=== PATIENT | female | born 1955 | race Caucasian/White ===

== ENCOUNTER 2020-03-05 15:16 | Emergency (ER) | payer OTHER, MEDICAID, SELFPAY ==
[2020-03-05 15:33] VITALS: BP 150/101; PULSE 87; RESP 16; TEMP 36.7; O2SAT 97; BMI 29.0
--- NOTE | 2020-03-05 15:41 | DI.US.S_ITS ---
PROCEDURE: US ABDOMEN LIMITED INDICATIONS: RUQ PAIN TECHNIQUE: Real-time focused scanning was performed of the abdomen, with image documentation. COMPARISON: None. FINDINGS: There are gallstones and gallbladder sludge. There is a gallbladder septation. No gallbladder wall thickening, pericholecystic fluid or sonographic Mckeon's sign. Liver is normal in size and demonstrates increased echotexture. The common bile duct is normal in contour measuring 5 mm. Visualized pancreas is normal. IMPRESSION: 1. Cholelithiasis. There are no ultrasound findings to suggest acute cholecystitis. 2. Diffusely increased hepatic echotexture. This finding is most likely secondary to hepatic fatty infiltration although other hepatocellular disease may have a similar appearance. Recommend clinical correlation. 3. Normal ultrasound appearance of pancreas. 4. Normal caliber of common bile duct. Dictated by: Ginny Arroyo M.D. on 03/05/2020 at 16:40 Approved by: Ginny Arroyo M.D. on 03/05/2020 at 16:43
--- NOTE | 2020-03-05 15:44 | ED.ABDPAIN ---
HPI - Abdominal Pain <MATTIE Casper - Last Filed: 03/05/20 19:10> General Chief Complaint: Abdominal Pain Stated Complaint: stomach issues, pain with eating Time Seen by Provider: 03/05/20 15:28 History of Present Illness HPI narrative: 64yo female presents to the ED for right upper quadrant/epigastric pain for the past 8 months. Patient states she notices that is worse in the morning and after she eats a large meal. She states she has had gallbladder problems in the past has not had a cholecystectomy. Patient has intermittent nausea but denies any nausea at this time. She does states that she feels like her abdomen is bloated. Patient reports she has not seen a doctor in years, denies taking any medications. Patient denies any other symptoms such as fevers, chills, diarrhea, blood in stools, chest pain, shortness of breath, dizziness, or any other concerns. Patient states she drinks approximately two drinks a day of wine and or a mixed drink. Patient denies any history of blood clots or taking any blood thinners. Review of Systems <MATTIE Casper - Last Filed: 03/05/20 19:10> Review of Systems Narrative: REVIEW OF SYSTEMS: GENERAL: Denies fever, chills, malaise, or wt. loss. HENT: No head trauma. CARDIOVASCULAR: No chest pain, palpitations, or orthopnea. RESPIRATORY: No shortness of breath or cough. GASTROINTESTINAL: Complains of RUQ abdominal pain with intermittent nausea, see HPI GENITOURINARY: No flank pain, urinary incontinence, hesitancy, frequency, or dysuria. MUSCULOSKELETAL: No pain, weakness, or trauma. INTEGUMENTARY: No rash, lesions, or pruritus. NEURO: No numbness, tingling. PSYCH: No behavior or mood changes. Patient History <MATTIE Casper - Last Filed: 03/05/20 19:10> Medical History No significant family history (Acute) Social History Smoking Status: Never smoker Smoking Status: Never smoker alcohol intake frequency: 0-2 drinks per day Alcohol type: wine Substance Use Type: does not use Exam <MATTIE Casper - Last Filed: 03/05/20 19:10> Initial Vital Signs Initial Vital Signs: Vital Signs Temperature 98.0 F 03/05/20 15:33 Pulse Rate 87 03/05/20 15:33 Respiratory Rate 16 03/05/20 15:33 Blood Pressure 150/101 H 03/05/20 15:33 Pulse Oximetry 97 03/05/20 15:33 PHYSICAL EXAMINATION: GENERAL: Well groomed, alert, and cooperative. Answers questions promptly and appropriately. Vital signs noted. HENT: Normocephalic, atraumatic. Hearing intact. Oral mucosa is pink and moist. EYES: Conjunctiva pink, sclera white, no periorbital swelling. CARDIOVASCULAR: S1 and S2 sounds normal. Regular rate and rhythm, no murmurs, clicks, or bruits. No pedal edema. RESPIRATORY: Normal respiratory rate, trachea midline, airway patent. No stridor, nasal flaring or accessory muscle use. Lungs are clear in all reese without wheeze, rhonchi, or crackles. GASTROINTESTINAL: Bowel sounds normoactive. Abdomen slightly distended, right upper quadrant tenderness. No organomegaly, no palpable masses. MUSCULOSKELETAL: Normal gait and coordination. Equal tone and mass bilaterally. EXTREMITIES: CMS intact, no pedal edema. SKIN: Warm, dry, soft, appropriate color for ethnicity. No lesions, rashes, or wounds to visualized areas. NEURO: Alert and Oriented X 3. Good coordination. No ataxia, or sensory deficits, or cognitive issues. PSYCH: Appropriate affect and mood. <Horacio Casiano DO - Last Filed: 03/06/20 07:07> Initial Vital Signs Initial Vital Signs: Vital Signs Temperature 98.0 F 03/05/20 15:33 Pulse Rate 87 03/05/20 15:33 Respiratory Rate 16 03/05/20 15:33 Blood Pressure 150/101 H 03/05/20 15:33 Pulse Oximetry 97 03/05/20 15:33 Course <MATTIE Casper - Last Filed: 03/05/20 19:10> Course Course Narrative: Patient was re-evaluated, continues to deny pain. We discussed urinary analysis findings, patient denies any dysuria, flank pain, fevers, or chills. Discussed option to wait for culture, patient was agreeable and did not want to start antibiotics at this time. Orders Ordered: Discontinued Medications Sodium Chloride (Normal Saline 0.9%) 1,000 mls @ 1,000 mls/hr IV BOLUS ONE Stop: 03/05/20 16:40 Last Infusion: 03/05/20 17:23 Dose: 0 mls/hr Documented by: Admin: 03/05/20 16:04 Dose: 1,000 mls/hr Documented by: GE Vital Signs Vital signs: Vital Signs - 8 hr 03/05/20 15:33 03/05/20 16:30 03/05/20 16:35 Temperature 98.0 F Pulse Rate 87 82 83 Respiratory Rate 16 16 14 Blood Pressure 150/101 H Blood Pressure [Left Arm] 146/75 H Blood Pressure [Right Arm] 146/75 H Pulse Oximetry 97 95 96 <Horacio Casiano DO - Last Filed: 03/06/20 07:07> Orders Ordered: Discontinued Medications Sodium Chloride (Normal Saline 0.9%) 1,000 mls @ 1,000 mls/hr IV BOLUS ONE Stop: 03/05/20 16:40 Last Infusion: 03/05/20 17:23 Dose: 0 mls/hr Documented by: Admin: 03/05/20 16:04 Dose: 1,000 mls/hr Documented by: GE Vital Signs Vital signs: Vital Signs - 8 hr 03/05/20 15:33 03/05/20 16:30 03/05/20 16:35 Temperature 98.0 F Pulse Rate 87 82 83 Respiratory Rate 16 16 14 Blood Pressure 150/101 H Blood Pressure [Left Arm] 146/75 H Blood Pressure [Right Arm] 146/75 H Pulse Oximetry 97 95 96 MDM - Abdominal Pain <MATTIE Casper - Last Filed: 03/05/20 19:10> Medical Records Attestation: I reviewed the patient's medical records. Lab Data Attestation: I reviewed the patient's lab results. Result diagrams: 03/05/20 15:47 03/05/20 15:47 Labs: Lab Results 03/05/20 03/05/20 03/05/20 Range/Units 15:47 15:47 16:30 WBC 8.4 (4.5-11.0) X10^3/uL RBC 3.63 L (4.0-5.2) X10^6/uL Hgb 14.6 (12.0-16.0) g/dL Hct 41.0 (36-46) % MCV 112.9 H (80-100) fL MCH 40.2 H (26-34) PG MCHC 35.6 (30-36) % RDW 14.3 (11.6-14.8) % Plt Count 183 (150-400) X10^3/uL Neut % (Auto) 74.6 (50-75) % Lymph % (Auto) 17.0 L (25-40) % [place] % (Auto) 6.0 (3-14) % Eos % (Auto) 1.7 L (2-4) % Baso % (Auto) 0.7 (0-2) % Neut # (Auto) 6300 (4416-3182) /uL Lymph # (Auto) 1400 (6115-9103) /uL [place] # (Auto) 500 (0-900) /uL Eos # (Auto) 100 (0-450) /uL Baso # (Auto) 100 (0-100) /uL RBC Morphology Not Reportable Macrocytosis 2+ H Sodium 136 L (137-145) mmol/L Potassium 3.9 (3.4-5.1) mmol/L Chloride 101 (98-107) mmol/L Carbon Dioxide 28 (22-32) mmol/L BUN 8 (7-17) mg/dL Creatinine 0.59 (0.52-1.04) mg/dL Estimated GFR > 60.0 (>60) mL/min BUN/Creatinine Ratio 13.6 (6-22) Glucose 109 (80-110) mg/dL Calcium 9.5 (8.4-10.2) mg/dL Total Bilirubin 0.8 (0.2-1.3) mg/dL AST 240 H (14-36) IU/L ALT 112 H (<35) IU/L Alkaline Phosphatase 125 (38-126) U/L Total Protein 7.7 (6.3-8.2) g/dL Albumin 4.4 (3.5-5.0) g/dL Globulin 3.3 (1.7-4.1) g/dL Albumin/Globulin Ratio 1.3 (1.0-2.8) Lipase 76 (23-300) U/L Urine RBC None seen (0-5/HPF) Urine WBC >100/hpf H (0-5/HPF) Ur Squamous Epith Cells 1-5 /hpf (0-5/HPF) Ur Renal Epithelial Cell 0-1/hpf (0-1/HPF) Amorphous Sediment 1+ Urine Bacteria Many (>30) H (None) Urine Mucus 2+ H (Negative) Ur Culture Indicated? Specimen cultured Point of care testing: Urine Dip Bedside Urine Glucose Negative Bedside Urine Bilirubin + 1 Bedside Urine Ketone +/- 5 Urine Specific [place] 1.015 Bedside Urine Occult Blood - Negative Bedside Urine pH 6.0 Bedside Urine Protein + 30 Bedside Urine Urobilinogen 2+ 4mg Bedside Urine Nitrite + Positive Bedside Urine Leukocytes +++ 500 Esterase Imaging Data US - abdomen: Radiologist's Impression: [address] [address] Ultrasound Report Signed Patient: Sharad Woodson#: [id number] : 5Acct:[id number] Age/Sex: 64 / FDate of Service: 03/05/20 Loc: ED Accession Number: [id number] Procedure: US abdomen limited Ordering Provider: Amanda Machuca PROCEDURE: US ABDOMEN LIMITED INDICATIONS: RUQ PAIN TECHNIQUE: Real-time focused scanning was performed of the abdomen, with image documentation. COMPARISON: None. FINDINGS: There are gallstones and gallbladder sludge. There is a gallbladder septation. No gallbladder wall thickening, pericholecystic fluid or sonographic Mckeon's sign. Liver is normal in size and demonstrates increased echotexture. The common bile duct is normal in contour measuring 5 mm. Visualized pancreas is normal. IMPRESSION: 1. Cholelithiasis. There are no ultrasound findings to suggest acute cholecystitis. 2. Diffusely increased hepatic echotexture. This finding is most likely secondary to hepatic fatty infiltration although other hepatocellular disease may have a similar appearance. Recommend clinical correlation. 3. Normal ultrasound appearance of pancreas. 4. Normal caliber of common bile duct. Dictated by: Ginny Arroyo M.D. on 03/05/2020 at 16:40 Approved by: Ginny Arroyo M.D. on 03/05/2020 at 16:43 MDM Narrative Medical decision making narrative: 64-year-old female presents emergency department complaining of left upper quadrant pain for the past few months. I Suspect patient's pain is most likely related to cholelithiasis due to prolonged duration of pain, history of ?gallbladder problems ?in the past, cholelithiasis seen on ultrasound, worsening pain after a large meal or eating heavy foods, and intermittent nausea. No concern for cholecystitis seen on ultrasound, bilirubin and lipase within normal limits. Exam with some mild tenderness but no severe pain. Less concern for acute infection due to normal white blood cell count and lack of other systemic symptoms such as tachycardia or fever. Patient's liver enzymes were slightly elevated, this may be due to fatty liver seen on ultrasound or alcohol consumption as well. It is possible it may be due to cholelithiasis but there are no signs of cholecystitis or elevated bilirubin to suggest emergent intervention is needed at this time. Patient did have bacteria in urine, discussed this with patient, she continued to denies any urinary tract infection symptoms. However, I explained to patient that urine will be sent for a culture and she will receive a call in 2 days if this is positive. In the meantime, patient was encouraged to drink lots of water. Patient was encouraged to refrain from eating foods high in fat, she was referred to the surgical service for further evaluation and consultation. Return precautions given for new or worsening symptoms. Patient agreed to plan of care verbalized understanding. <Horacio Casiano, DO - Last Filed: 03/06/20 07:07> Lab Data Labs: Lab Results 03/05/20 03/05/20 03/05/20 Range/Units 15:47 15:47 16:30 WBC 8.4 (4.5-11.0) X10^3/uL RBC 3.63 L (4.0-5.2) X10^6/uL Hgb 14.6 (12.0-16.0) g/dL Hct 41.0 (36-46) % MCV 112.9 H (80-100) fL MCH 40.2 H (26-34) PG MCHC 35.6 (30-36) % RDW 14.3 (11.6-14.8) % Plt Count 183 (150-400) X10^3/uL Neut % (Auto) 74.6 (50-75) % Lymph % (Auto) 17.0 L (25-40) % [place] % (Auto) 6.0 (3-14) % Eos % (Auto) 1.7 L (2-4) % Baso % (Auto) 0.7 (0-2) % Neut # (Auto) 6300 (1693-8919) /uL Lymph # (Auto) 1400 (3076-4111) /uL [place] # (Auto) 500 (0-900) /uL Eos # (Auto) 100 (0-450) /uL Baso # (Auto) 100 (0-100) /uL RBC Morphology Not Reportable Macrocytosis 2+ H Sodium 136 L (137-145) mmol/L Potassium 3.9 (3.4-5.1) mmol/L Chloride 101 (98-107) mmol/L Carbon Dioxide 28 (22-32) mmol/L BUN 8 (7-17) mg/dL Creatinine 0.59 (0.52-1.04) mg/dL Estimated GFR > 60.0 (>60) mL/min BUN/Creatinine Ratio 13.6 (6-22) Glucose 109 (80-110) mg/dL Calcium 9.5 (8.4-10.2) mg/dL Total Bilirubin 0.8 (0.2-1.3) mg/dL AST 240 H (14-36) IU/L ALT 112 H (<35) IU/L Alkaline Phosphatase 125 (38-126) U/L Total Protein 7.7 (6.3-8.2) g/dL Albumin 4.4 (3.5-5.0) g/dL Globulin 3.3 (1.7-4.1) g/dL Albumin/Globulin Ratio 1.3 (1.0-2.8) Lipase 76 (23-300) U/L Urine RBC None seen (0-5/HPF) Urine WBC >100/hpf H (0-5/HPF) Ur Squamous Epith Cells 1-5 /hpf (0-5/HPF) Ur Renal Epithelial Cell 0-1/hpf (0-1/HPF) Amorphous Sediment 1+ Urine Bacteria Many (>30) H (None) Urine Mucus 2+ H (Negative) Ur Culture Indicated? Specimen cultured Point of care testing: Urine Dip Bedside Urine Glucose Negative Bedside Urine Bilirubin + 1 Bedside Urine Ketone +/- 5 Urine Specific [place] 1.015 Bedside Urine Occult Blood - Negative Bedside Urine pH 6.0 Bedside Urine Protein + 30 Bedside Urine Urobilinogen 2+ 4mg Bedside Urine Nitrite + Positive Bedside Urine Leukocytes +++ 500 Esterase Discharge Plan Departure Patient Disposition: Home Clinical Impression: Cholelithiasis Qualifiers: Cholelithiasis location: gallbladder Cholecystitis presence: without cholecystitis Biliary obstruction: without biliary obstruction Qualified Code(s): K80.20 - Calculus of gallbladder without cholecystitis without obstruction Discharge Date/Time: 03/05/20 17:34 Instructions: Essential Hypertension, DI for Gallstones Activity Restrictions/Additional Instructions: Thank you for entrusting me with your care today. As discussed, your ultrasound shows stones in your gallbladder, there is no inflammation or blockage and no immediate intervention is needed today. However, I suggest following up with the surgical office listed below to schedule a consultation. [facility]: Your liver enzymes were slightly elevated: AST 240 and ALT 112 this could be due to alcohol consumption, genetic fatty liver, and or gallstones. Your blood sugar today was 109 which is normal for a random test. Your blood pressure of was elevated today, this can be a chronic problem or coincidental. I do recommend following up with your primary care provider for further evaluation of your blood pressure. I recommend a low-fat diet and drink plenty of fluids over the next few weeks to minimize abdominal discomfort. Return emergency department for any new or worsening symptoms such as severe pain, uncontrollable vomiting, chest pain, shortness of breath, any other concerns. Referrals: Kavin Hoang MD [Physician] - <Horacio Casiano DO - Last Filed: 03/06/20 07:07> Cosign ED Attending Cosignature Attestation: Dr Casiano Co-Sign Statement: I was available for consultation during this patient's emergency department visit. This chart is signed by myself for administrative purposes only. I did not have direct contact with this patient during this visit. They were seen independently by the APC.
[2020-03-05 15:57] LABS: Add Manual Diff / Slide Review NO; Basophils Absolute Auto 100 /uL (0-100); Basophils Percent Auto 0.7 % (0-2); Eosinophils Absolute Auto 100 /uL (0-450); Eosinophils Percent Auto 1.7 % (2-4); Hemoglobin 14.6 g/dL (12.0-16.0); Lymphocytes Absolute Auto 1400 /uL (1100-4500); Mean Corpuscular HGB Conc 35.6 % (30-36); Mean Corpuscular Hemoglobin 40.2 PG (26-34); Mean Corpuscular Volume 112.9 fL (80-100); Monocytes Absolute Auto 500 /uL (0-900); Neutrophils Absolute Auto 6300 /uL (1500-7000); Neutrophils Percent Auto 74.6 % (50-75); Platelet Count 183 X10^3/uL (150-400); Red Blood Cell Count 3.63 X10^6/uL (4.0-5.2); Red Cell Distribution Width 14.3 % (11.6-14.8); White Blood Cell Count 8.4 X10^3/uL (4.5-11.0)
[2020-03-05 16:04] LABS: Alanine Aminotransferase 112 IU/L (<35); Albumin 4.4 g/dL (3.5-5.0); Albumin Globulin Ratio 1.3 (1.0-2.8); Alkaline Phosphatase 125 U/L (38-126); Aspartate Aminotransferase 240 IU/L (14-36); BUN Creatinine Ratio 13.6 (6-22); Bilirubin Total 0.8 mg/dL (0.2-1.3); Blood Urea Nitrogen 8 mg/dL (7-17); Calcium 9.5 mg/dL (8.4-10.2); Carbon Dioxide 28 mmol/L (22-32); Chloride 101 mmol/L (98-107); Estimated Glomerular Filt Rate > 60.0 mL/min (>60); Globulin 3.3 g/dL (1.7-4.1); Glucose 109 mg/dL (80-110); HEMOLYSIS < 15 (0-50); Lipase 76 U/L (23-300); Potassium 3.9 mmol/L (3.4-5.1); Sodium 136 mmol/L (137-145); Total Protein 7.7 g/dL (6.3-8.2)
[2020-03-05] MEDS: SODIUM CHLORIDE 0.9% 1,000 ML 1000 ML IV (16:04)
[2020-03-05 16:20] LABS: Macrocytosis 2+
[2020-03-05 16:30] VITALS: BP 146/75; PULSE 82; RESP 16; O2SAT 95
[2020-03-05 16:35] VITALS: BP 146/75; PULSE 83; RESP 14; O2SAT 96
[2020-03-05 16:48] LABS: RBC Urine None Seen (0-5/HPF)
[2020-03-05 16:56] LABS: Amorphous Sediment Urine 1+; Bacteria Urine Many (>30); Culture Indicated Urine Specimen Cultured; Mucus Urine 2+ (Negative); Renal Epithelial Cells Urine 0-1/HPF (0-1/HPF); Squamous Epithelial Cell Urine 1-5 /HPF (0-5/HPF); WBC Urine >100/HPF (0-5/HPF)
== END 2020-03-05 17:34 | disposition home or self-care (01) ==
PROVIDERS: Emergency Provider Nurse Practitioner
DX: K80.20 Calculus of gallbladder without cholecystitis without obstruction (principal); I10 Essential (primary) hypertension
CPT/HCPCS: 36415; 76705; 80053; 81003; 81015; 83690; 85025; 87077; 87086; 87186; 96360; 99284

== ENCOUNTER 2020-04-14 13:04 | Day surgery (SDC) | payer OTHER, MEDICAID, SELFPAY ==
[2020-04-08 15:06] VITALS: BMI 31.3
[2020-04-14] VITALS (8 sets, daily range): BP systolic 133–165; BP diastolic 54–81; PULSE 73–94; RESP 14–18; TEMP 36.3–36.9; O2SAT 93–97; BMI 31.3
--- NOTE | 2020-04-14 | PATH_ITS ---
[facility] Accession Number: [id number] . 01 Material submitted: . gallbladder - GALLBLADDER AND CONTENTS . 02 Diagnosis: Gallbladder and Contents: Chronic cholecystitis, cholesterolosis, and cholelithiasis. A gallstone is present within the gallbladder neck at gross examination. V 04/17/2020 1031 Local . 02 Electronically signed: . Marjorie Walsh MD, Pathologist NPI- [id number] . 01 Gross description: . Specimen A is received in formalin, labeled with patient identification and gallbladder and contents. It consists of an intact gallbladder measuring 7.2 cm in length and 2.8 m in diameter. The staple at the cystic duct margin is removed and the cystic duct margin is inked blue. The cystic duct is 0.3 cm in diameter. The serosa is pink-flor smooth and dull. The hepatic surface is yellow-flor shaggy and cauterized. Opening the specimen reveals bright to yellow-flor and velvety mucosa with a black calculus at the neck measuring 0.9 x 0.9 x 0.8 cm. The wall thickness is up to 0.2 cm. No cystic lymph node candidate is grossly identified. Shoeshiner sections are submitted in two cassettes. . Summary of sections: A1 - cystic duct margin, shave, one piece. A2 - shared services representative sections of gallbladder, three pieces. ([id number]) /V 04/16/2020 1354 Local . 02 Pathologist provided ICD-10: K80.20, K81.1, K80.60 . 02 CPT . 361542 Performed at: [address], [place], [place] [id number] MD Waqas Rodriguez MD Phone: [phone] Performed at: 02 [facility] [id number] [place] [id number] MD Marian Capellan MD Phone: [phone]
[2020-04-14] MEDS: LACTATED RINGERS 1,000 ML 100 ML IV (13:23)
--- NOTE | 2020-04-14 13:39 | PM.PREOP ---
Pre-operative Note COVID-19 COVID-19 status: Negative Interval Note History & Physical reviewed/Exam performed by Physician: Yes Changes to H&P: No
[2020-04-14] MEDS: CEFAZOLIN 2 GM/100 ML FROZ.PIGGY IV (13:55)
[2020-04-14] MEDS: BUPIVACAINE 0.25% (PF) VIAL 30 ML INJ (14:24)
--- NOTE | 2020-04-14 14:27 | SUR.OPER ---
Supine on padded OR bed, head on pillow, safety belt at thigh, left arm padded and tucked at side. Right arm secured on padded arm oard <90 degrees abduction. Legs uncrossed. Padded footboard in place. Tape over blanket to secure lower legs.
--- NOTE | 2020-04-14 15:23 | PM.OP.1 ---
Operative Date/Time/Diagnoses Date of procedure: 04/14/20 Time of procedure: 15:24 Pre-op diagnosis: Biliary colic Post-op diagnosis: same Procedure & Clinicians Procedure: Laparoscopic cholecystectomy Same procedure as scheduled: Yes Indications: 64-year-old female with multiple episodes of biliary colic presents for elective cholecystectomy Surgeon: Kavin Hoang Click Yes if Unassisted: Yes Anesthesia Type: General Operative Notes Findings: Chronic cholecystitis Estimated Blood Loss (mL): 20 Procedure in detail: The patient was placed supine on the table and bilateral lower extremity compression devices were applied. Anesthesia was induced they were intubated with an endotracheal tube and received 2g of Ancef. A time-out was performed. They were prepped and draped in sterile fashion. An infraumbilical incision was made, the umbilical stalk was elevated and the fascia was sharply incised entering the abdomen atraumatically. A blunt tip 12mm balloon trocar was then inserted, pneumoperitoneum was established and inspection of the abdomen demonstrated no evidence of injury. They were placed head up and right side up and then a 11 mm port was placed high in the epigastrium and two 5mm in the right upper quadrant. There were numerous adhesions between the gallbladder the liver in the omentum omentum and consistent with chronic cholecystitis the adhesions were carefully taken down with electrocautery. The gallbladder was grasped by the fundus and retracted over the liver and retracted laterally by the infundibulum. Using electrocautery the lateral plane between the gallbladder and the liver was opened towards the fundus. The gallbladder was then retracted laterally and the medial plane was developed in the same manner. With the gallbladder mobilized the bottom of the cystic plate was visualized. The hepatocystic triangle was meticulosly skeletonized using hook electrocautery of all fat and fibrous tissue from both the front and the back. Only two structures were then clearly seen entering the gallbladder the cystic duct and the cystic artery. With the critical view of safety fully established the cystic duct was clipped twice proximally and once distally using the 10 mm clip applied under direct visualization and then sharply divided. The cystic artery was divided in the same fashion. There is a small amount of blood that came from the cystic artery and I placed a 0 PDS endoloop over the cystic artery under direct visualization and hemostasis was achieved. The gallbladder was removed from the liver bed using electro cautery. The liver bed was then inspected for hemostasis and this was achieved. The abdomen was irrigated with sterile saline and inspection was made that showed the clips in good position. The specimen was removed using Endo-Catch. The abdomen was desufflated. The umbilical fascia was closed with 0 Vicryl in a [id number] fashion under direct visualization. Skin incisions were irrigated and closed with 4-0 Monocryl. 30 ml of 0.25% bupivacaine was infiltrated into the subcutaneous tissue of the incisions. The wounds were sealed with Dermabond. Patient emerged from anesthesia was extubated and transferred to recovery in stable condition. The sponge and instrument count at the end of the operation was correct. Complications: none Post-operative Condition: stable Disposition: same day surgery
[2020-04-14] MEDS: OXYCODONE/ACETAMINOPHEN 5/325 TABLET 1 TAB PO (15:45)
== END 2020-04-14 16:20 | disposition home or self-care (01) ==
PROVIDERS: PCP Family Medicine; Referring Provider Surgery; Visit Provider Surgery
PROC: 0FT44ZZ Resection of Gallbladder, Percutaneous Endoscopic Approach (ICD-10-PCS; CPT 47562; principal; 2020-04-14 12:15)
DX: K80.20 Calculus of gallbladder without cholecystitis without obstruction (principal)
CPT/HCPCS: 47562; J0690; J1100; J1885; J2250; J2405; J2704; J3010

== ENCOUNTER → 2021-04-21 11:44 | Outpatient (CLI) | payer MEDICARE, MEDICAID, SELFPAY ==
--- NOTE | 2021-04-21 11:48 | DI.US.S_ITS ---
PROCEDURE: US ABDOMEN LIMITED INDICATIONS: ABNORMAL LABS TECHNIQUE: Real-time focused scanning was performed of the abdomen, with image documentation. COMPARISON: [facility], US, US ABDOMEN LIMITED, 03/05/2020, 16:17. FINDINGS: The liver is enlarged measuring 20.9 cm in length. It is diffusely hyperechoic in echotexture and difficult to penetrate with ultrasound. No visible mass. No intra or extrahepatic biliary dilatation. The extrahepatic common duct is 4.7 mm. There has been interval cholecystectomy. The pancreas was not well seen. No suspicious masses in this region are visible. No fluid seen in the right upper quadrant. IMPRESSION: 1. Hepatomegaly and diffuse hepatic hyperechogenicity suggesting steatosis or other intrinsic liver disease. 2. Post cholecystectomy without biliary dilatation. Dictated by: Jie Nickerson M.D. on 04/21/2021 at 12:59 Approved by: Jie Nickerson M.D. on 04/21/2021 at 13:07
== END ==
PROVIDERS: PCP Family Medicine; Referring Provider Family Medicine; Visit Provider Family Medicine
DX: R79.89 Other specified abnormal findings of blood chemistry (principal); R16.0 Hepatomegaly, not elsewhere classified
CPT/HCPCS: 76705